=== PATIENT | female | born 1955 | race Caucasian/White ===

== ENCOUNTER → 2021-03-11 | Outpatient (CLI) | payer MEDICARE, OTHER ==
[~2021-03-11] MED LIST: CALC1TAB4 PO; MULT-672 PO; MV-M1TAB54 PO; ROSU20TA2 PO
[2021-03-11 09:55] LABS: BASOPHILS % (AUTO) 1 % (0-1); EOSINOPHILS % (AUTO) 1 % (1-7); LYMPHOCYTES % (AUTO) 30 % (22-44); MEAN CORPUSCULAR HEMOGLOBIN 31.6 pg (27.0-34.8); MEAN CORPUSCULAR HGB CONC 34.2 g/dL (32.4-35.8); MEAN PLATELET VOLUME 8.3 fL (7.4-10.4); MONOCYTES % (AUTO) 5 % (2-9); NEUTROPHILS % (AUTO) 64 % (42-75); PLATELET COUNT 235 x10^3/uL (130-400); RED BLOOD COUNT 4.62 x10^6/uL (3.82-5.3)
[2021-03-11 09:59] LABS: MICROSCOPIC AUTO
[2021-03-11 10:02] LABS: ANION GAP 3 mmol/L (5-15); CALCIUM 9.7 mg/dL (8.5-10.1); CHLORIDE 102 mmol/L (98-107); CREATININE 0.85 mg/dL (0.55-1.02); INTERNATIONAL NORMALIZED RATIO 0.96 (0.93-1.1); PROTHROMBIN TIME 10.3 Seconds (9.6-11.5)
== END | disposition home or self-care (01) ==
LOC: STAR 08:53
PROVIDERS: ATTEND Urology
DX: Z01.818 Encounter for other preprocedural examination (principal); N32.89 Other specified disorders of bladder
CPT/HCPCS: 36415; 80048; 81001; 85025; 85610; 87086; 93005

== ENCOUNTER 2021-03-22 11:08 | Day surgery (SDC) | payer MEDICARE, OTHER ==
[~2021-03-22] VITALS: Ht 167.6 cm; Wt 72.4 kg
[2021-03-22] MEDS ORDERED: CHLORHEXIDINE 15 ML UDC PO ONE (12:00)
[2021-03-22] MEDS ORDERED: LACTATED RINGERS 1,000 ML IV SCH (12:00)
[2021-03-22] MEDS ORDERED: MIDAZOLAM 1 MG/ML, 2ML ONE (13:42)
[2021-03-22] MEDS ORDERED: FENTANYL PF 100 MCG/2ML ONE (13:42)
[2021-03-22] MEDS ORDERED: ROCURONIUM 10 MG/ML,10ML ONE (14:00)
[2021-03-22] MEDS ORDERED: SUGAMMADEX 200 MG/2 ML IVPush ONE (14:00)
[2021-03-22] MEDS ORDERED: GEMCITABINE HCL 1,000 MG in SODIUM CHLORIDE 0.9% 23.7 ML IS ONE (14:00)
[2021-03-22] MEDS ORDERED: DEXAMETHASONE 4 MG/ML, 1ML ONE (14:00)
[2021-03-22] MEDS ORDERED: PROPOFOL 10 MG/ML, 20ML ONE (14:00)
[2021-03-22] MEDS ORDERED: CEFAZOLIN 1,000 MG ONE (14:00)
[2021-03-22] MEDS ORDERED: ONDANSETRON 2MG/ML, 2ML ONE (14:00)
[2021-03-22] MEDS ORDERED: PROMETHAZINE 25 MG/ML, 1ML IVPush PRN (15:00)
[2021-03-22] MEDS ORDERED: PROMETHAZINE 25 MG SUPP PR PRN (15:00)
[2021-03-22] MEDS ORDERED: OXYcodone 5 MG/5 ML ORAL.SOL UDC PO PRN (15:00)
[2021-03-22] MEDS ORDERED: FENTANYL PF 100 MCG/2ML IV PRN (15:00)
[2021-03-22] MEDS ORDERED: HYDROmorphone 1 MG/ML, 1ML INJ IVPush PRN (15:00)
[2021-03-22] MEDS ORDERED: ACETAMINOPHEN 325 MG TABLET PO PRN (15:00)
[2021-03-22] MEDS ORDERED: ONDANSETRON 2MG/ML, 2ML IVPush PRN (15:00)
[2021-03-22] MEDS ORDERED: MEPERIDINE/PF 25MG/0.5ML IVPush PRN (15:00)
[2021-03-22] MEDS ORDERED: LORazepam 2 MG/ML, 1ML IVPush PRN (15:00)
[2021-03-22] MEDS ORDERED: hydrALAzine 20 MG/ML, 1ML IV PRN (15:00)
[2021-03-22] MEDS ORDERED: METHOCARBAMOL 1,000 MG in DEXTROSE 5% 100 ML IV PRN (15:00)
[2021-03-22] MEDS ORDERED: LABETALOL 5MG/ML, 20ML IV PRN (15:00)
== END 2021-03-22 16:30 | disposition home or self-care (01) ==
LOC: OUT 11:08
PROVIDERS: ATTEND Urology
DX: D49.4 Neoplasm of unspecified behavior of bladder (principal); C67.3 Malignant neoplasm of anterior wall of bladder; E78.5 Hyperlipidemia, unspecified; Z79.899 Other long term (current) drug therapy; Z87.440 Personal history of urinary (tract) infections; Z87.891 Personal history of nicotine dependence; Z82.49 Family history of ischemic heart disease and other diseases of the circulatory system
CPT/HCPCS: 51720; 52234; 88307; J0690; J1100; J2250; J2405; J2704; J3010; J7120